=== PATIENT | female | born 1955 | race African-American/Black ===

== ENCOUNTER 2018-09-20 08:15 | Day surgery (SDC) | payer MEDICAID ==
[~2018-09-20] VITALS: Ht 157.5 cm; Wt 117.9 kg
[2018-09-20 09:38] LABS: BASOPHILS % 0.5 % (0.0-2.0); EOSINOPHILS % 1.3 % (0.0-5.0); HEMATOCRIT. 40.8 % (36.0-48.0); HEMOGLOBIN. 13.4 g/dL (12.0-16.0); LYMPHOCYTES % 38.3 % (20.0-50.0); MEAN CORPUSCULAR HEMOGLOBIN 23.7 pg (28.0-32.0); MEAN CORPUSCULAR VOLUME 72.3 fL (81.0-99.0); MEAN PLATELET VOLUME 8.1 fl (7.4-10.4); MONOCYTES % 6.5 % (2.0-8.0); NEUTROPHILS % 53.4 % (40.0-76.0); PLATELET 209 x1000/uL (130-400); RED BLOOD CELL COUNT 5.64 mill/uL (4.2-5.4); RED CELL DISTRIBUTION WIDTH 15.6 % (11.6-14.6)
[2018-09-20 09:44] LABS: CHLORIDE 106 mEq/L (98-107)
[2018-09-20] MEDS ORDERED: SIMETHICONE 40 MG/0.6 ML 30ML ONE (10:44)
[2018-09-20] MEDS ORDERED: PROPOFOL 200MG/20ML VIAL IV ONE ×2 (11:06→11:27)
[2018-09-20] MEDS ORDERED: HYDROMORPHONE HCL/PF 2MG/ML CPJ IV PRN (11:15)
[2018-09-20] MEDS ORDERED: MEPERIDINE HCL/PF 25MG/ML CPJ IV PRN (11:15)
[2018-09-20] MEDS ORDERED: ONDANSETRON HCL 4MG/2ML INJ IV PRN (11:15)
[2018-09-20] MEDS ORDERED: LABETALOL 5MG/ML SYR 20 MG/4 ML SYRINGE IV PRN (11:15)
[2018-09-20] MEDS ORDERED: LIDOCAINE HCL/PF 1% 10 MG/ML 5ML VIAL ONE (11:16)
[2018-09-20] MEDS ORDERED: DICL75TA5 PO (12:38)
[2018-09-20] MEDS ORDERED: ALBU18HF2 IH (12:38)
[2018-09-20] MEDS ORDERED: GLIM2TAB2 PO (12:38)
[2018-09-20] MEDS ORDERED: INSU100I24 SQ (12:38)
[2018-09-20] MEDS ORDERED: OXYB5TAB11 PO (12:38)
[2018-09-20] MEDS ORDERED: CLOT15CR4 TP (12:38)
[2018-09-20] MEDS ORDERED: AMMO140C2 TOP (12:38)
[2018-09-20] MEDS ORDERED: CAPS42.57 TP (12:38)
[2018-09-20] MEDS ORDERED: BECL10.62 IH (12:38)
[2018-09-20] MEDS ORDERED: DOCU250C19 PO (12:38)
[2018-09-20] MEDS ORDERED: ERGO2000 PO (12:38)
[2018-09-20] MEDS ORDERED: UMEC1DIS IH (12:38)
[2018-09-20] MEDS ORDERED: FURO20TA4 PO (12:38)
[2018-09-20] MEDS ORDERED: [UNRECOGNIZED DRUG - CODE] SUBCUT (12:38)
[2018-09-20] MEDS ORDERED: AMIT25TA9 PO (12:38)
[2018-09-20] MEDS ORDERED: MONT10TA21 PO (12:38)
[2018-09-20] MEDS ORDERED: LOSA25TA12 PO (12:38)
== END 2018-09-20 12:45 | disposition home or self-care (01) ==
LOC: OR 08:15
PROVIDERS: ATTEND Internal Medicine Gastroenterology
DX: K29.50 Unspecified chronic gastritis without bleeding (principal); K20.9 Esophagitis, unspecified; K59.00 Constipation, unspecified; K64.8 Other hemorrhoids; Z79.4 Long term (current) use of insulin; K44.9 Diaphragmatic hernia without obstruction or gangrene; B18.2 Chronic viral hepatitis C; I10 Essential (primary) hypertension; J44.9 Chronic obstructive pulmonary disease, unspecified; E11.9 Type 2 diabetes mellitus without complications; M19.90 Unspecified osteoarthritis, unspecified site; Z86.010 Personal history of colon polyps; Z98.890 Other specified postprocedural states; Z79.899 Other long term (current) drug therapy; Z90.711 Acquired absence of uterus with remaining cervical stump
CPT/HCPCS: 36415; 43239; 45378; 80048; 82962; 85025; 88305; 88312; 88313; 93005; J3490; J2704

== ENCOUNTER 2019-02-16 10:13 | Inpatient (IN) | payer MEDICAID ==
[~2019-02-16] VITALS: Ht 157.5 cm; Wt 129.3 kg
[~2019-02-16 10:13] MED LIST: ALBU18HF2 IH; AMIT25TA9 PO; AMMO140C2 TOP; BECL10.62 IH; CAPS42.57 TP; CLOT15CR4 TP; DICL75TA5 PO; DOCU250C19 PO; ERGO2000 PO; FURO20TA4 PO; GLIM2TAB2 PO; INSU100I24 SQ; LOSA25TA12 PO; MONT10TA21 PO; OXYB5TAB11 PO; UMEC1DIS IH; [UNRECOGNIZED DRUG - CODE] SUBCUT
[2019-02-16] MEDS ORDERED: KETOROLAC 30MG/ML VIAL IV STA (11:26)
[2019-02-16 11:49] LABS: BASOPHILS % 0.6 % (0.0-2.0); EOSINOPHILS % 0.4 % (0.0-5.0); HEMATOCRIT. 40.8 % (36.0-48.0); HEMOGLOBIN. 13.3 g/dL (12.0-16.0); LYMPHOCYTES % 27.6 % (20.0-50.0); MEAN CORPUSCULAR HEMOGLOBIN 24.9 pg (28.0-32.0); MEAN CORPUSCULAR VOLUME 76.7 fL (81.0-99.0); MEAN PLATELET VOLUME 7.5 fl (7.4-10.4); MONOCYTES % 5.4 % (2.0-8.0); PLATELET 346 x1000/uL (130-400); RED BLOOD CELL COUNT 5.33 mill/uL (4.2-5.4); RED CELL DISTRIBUTION WIDTH 16.9 % (11.6-14.6)
[2019-02-16 11:54] LABS: CHLORIDE 103 mEq/L (98-107)
[2019-02-16] MEDS ORDERED: DEXTROSE 50% WATER 50ML SYRINGE IV PRN (15:00)
[2019-02-16] MEDS ORDERED: CLONIDINE 0.1MG TABLET PO PRN (15:00)
[2019-02-16] MEDS ORDERED: FUROSEMIDE 40MG/4ML VIAL IVP NR (18:00)
[2019-02-16] MEDS: INSULIN LISPRO 100 UNITS/ML SUBCUT SCH ×2 (18:10→20:57)
[2019-02-16] MEDS: MONTELUKAST SODIUM 10MG TABLET PO SCH (18:58)
[2019-02-16 20:05] VITALS: BP 133/65
[2019-02-16 20:11] VITALS: BP 133/65
[2019-02-16] MEDS: ENOXAPARIN 30MG/0.3ML SYR SUBCUT SCH (20:54)
[2019-02-16] MEDS: BLOOD SUGAR DIAGNOSTIC STRIP TEST SCH (20:57)
[2019-02-16] MEDS ORDERED: GUAIFENESIN 600MG ER TABLET PO SCH (21:00)
[2019-02-16] MEDS: ACETAMINOPHEN 325MG TABLET PO PRN (23:23)
[2019-02-17 00:05] VITALS: BP 99/45
[2019-02-17] MEDS: BUDESONIDE 0.5MG/2ML NEB HHN SCH ×3 (00:36→21:11)
[2019-02-17] MEDS: IPRATROPIUM/ALBUTEROL 0.5-3(2.5)MG/3ML NEB HHN PRN (00:37)
[2019-02-17 04:00] VITALS: BP 106/74
[2019-02-17] MEDS: ACETAMINOPHEN 325MG TABLET PO PRN (06:32)
[2019-02-17 07:17] LABS: BASOPHILS % 0.6 % (0.0-2.0); EOSINOPHILS % 0.8 % (0.0-5.0); HEMATOCRIT. 38.6 % (36.0-48.0); HEMOGLOBIN. 12.5 g/dL (12.0-16.0); LYMPHOCYTES % 44.9 % (20.0-50.0); MEAN CORPUSCULAR HEMOGLOBIN 24.6 pg (28.0-32.0); MEAN CORPUSCULAR VOLUME 76.5 fL (81.0-99.0); MEAN PLATELET VOLUME 7.4 fl (7.4-10.4); MONOCYTES % 5.5 % (2.0-8.0); NEUTROPHILS % 48.2 % (40.0-76.0); PLATELET 298 x1000/uL (130-400); RED BLOOD CELL COUNT 5.05 mill/uL (4.2-5.4); RED CELL DISTRIBUTION WIDTH 16.7 % (11.6-14.6)
[2019-02-17 07:21] LABS: CHLORIDE 105 mEq/L (98-107)
[2019-02-17] MEDS: BLOOD SUGAR DIAGNOSTIC STRIP TEST SCH ×4 (07:40→21:23)
[2019-02-17 08:00] VITALS: BP 129/83
[2019-02-17] MEDS: INSULIN LISPRO 100 UNITS/ML SUBCUT SCH ×4 (08:10→21:00)
[2019-02-17] MEDS: CLOPIDOGREL 75MG TABLET PO SCH (09:00)
[2019-02-17] MEDS ORDERED: ACETAMINOPHEN 650MG SUPP PR PRN (10:15)
[2019-02-17] MEDS ORDERED: KETOROLAC 30MG/ML VIAL IV PRN (10:15)
[2019-02-17] MEDS ORDERED: DEXT 5%/0.45% NACL 500ML 1,000 ML IV ONE (11:15)
[2019-02-17] MEDS ORDERED: DEXT 5%/0.45% NACL 1000ML 1,000 ML IV SCH (11:30)
[2019-02-17] MEDS: MORPHINE SULFATE 4 MG/ML CPJ (NOT FOR IM USE) IV PRN ×3 (11:37→22:32)
[2019-02-17 12:00] VITALS: BP 132/80
[2019-02-17] MEDS: FUROSEMIDE 40MG/4ML VIAL IVP SCH (12:50)
[2019-02-17] MEDS: AZITHROMYCIN 500 MG in DEXT 5% WATER 250 ML IV SCH (12:51)
[2019-02-17] MEDS ORDERED: ASPIRIN 300MG SUPP PR SCH (13:00)
[2019-02-17] MEDS: ENOXAPARIN 30MG/0.3ML SYR SUBCUT SCH ×2 (13:02→21:23)
[2019-02-17] MEDS: LOSARTAN POTASSIUM 25 MG TABLET PO SCH (14:00)
[2019-02-17] MEDS: POTASSIUM CHLORIDE 20MEQ TABLET SR PO SCH (14:00)
[2019-02-17 14:59] LABS: ETHANOL BLOOD < 10 mg/dL
[2019-02-17 15:04] LABS: CREATINE KINASE 278 IU/L (26-192)
[2019-02-17 15:05] LABS: T4 FREE 1.09 ng/dL (0.76-1.46)
[2019-02-17 15:12] LABS: FOLIC ACID (FOLATE) SERUM >20 ng/mL ng/mL (>5.38)
[2019-02-17 15:24] LABS: VITAMIN B12 SERUM 702 pg/mL (211-911)
[2019-02-17 16:00] VITALS: BP 135/75
[2019-02-17] MEDS: DOCUSATE SODIUM SUGAR FREE 100MG/10ML UDC NG SCH (17:00)
[2019-02-17] MEDS: MONTELUKAST SODIUM 10MG TABLET PO SCH (17:00)
[2019-02-17] MEDS ORDERED: BUDESONIDE 0.5MG/2ML NEB HHN SCH (18:15)
[2019-02-17] MEDS: ONDANSETRON HCL 4MG/2ML INJ IV PRN (19:02)
[2019-02-17] MEDS: NICOTINE 14MG PATCH TD SCH (19:37)
[2019-02-17 20:00] VITALS: BP 109/48
[2019-02-17] MEDS: IPRATROPIUM/ALBUTEROL 0.5-3(2.5)MG/3ML NEB HHN SCH (21:11)
[2019-02-17] MEDS: ATORVASTATIN CALCIUM 40MG TABLET PO SCH (21:22)
[2019-02-17 23:00] LABS: CLARITY URINE CLEAR (CLEAR); COLOR URINE YELLOW (YELLOW); KETONES URINE TRACE (NEGATIVE); LEUKOCYTE ESTERASE URINE NEGATIVE (NEGATIVE); NITRITE URINE NEGATIVE (NEGATIVE); OCCULT BLOOD URINE NEGATIVE (NEGATIVE); PH URINE 5.5 (4.5-8.0); PROTEIN URINE NEGATIVE (NEGATIVE); SPECIFIC GRAVITY URINE 1.013 (1.005-1.030)
[2019-02-17 23:23] LABS: *AMPHETAMINES SCREEN URINE NEGATIVE (NEGATIVE); *BARBITURATES SCREEN URINE NEGATIVE (NEGATIVE); *BENZODIAZEPINES SCREEN URINE NEGATIVE (NEGATIVE); *COCAINE SCREEN URINE NEGATIVE (NEGATIVE); METHADONE URINE SCREEN NEGATIVE (NEGATIVE); OPIATES URINE SCREEN PRESUMTIVE POSITIVE (NEGATIVE)
[2019-02-17 23:24] LABS: CANNABINOID URINE SCREEN NEGATIVE (NEGATIVE); PHENCYCLIDINE URINE SCREEN NEGATIVE (NEGATIVE)
[2019-02-18] VITALS: BP 109/58
[2019-02-18] MEDS: IPRATROPIUM/ALBUTEROL 0.5-3(2.5)MG/3ML NEB HHN SCH ×4 (01:30→21:00)
[2019-02-18] MEDS: ACETYLCYSTEINE 100MG/ML 10% VIAL 4ML INH SCH ×2 (01:30→08:16)
[2019-02-18] MEDS: MORPHINE SULFATE 4 MG/ML CPJ (NOT FOR IM USE) IV PRN ×2 (02:46→21:36)
[2019-02-18 04:00] VITALS: BP 168/83
[2019-02-18] MEDS: BLOOD SUGAR DIAGNOSTIC STRIP TEST SCH ×4 (07:03→21:06)
[2019-02-18] MEDS: INSULIN LISPRO 100 UNITS/ML SUBCUT SCH ×4 (07:20→21:00)
[2019-02-18 07:33] LABS: BASOPHILS % 0.5 % (0.0-2.0); EOSINOPHILS % 0.8 % (0.0-5.0); HEMATOCRIT. 38.8 % (36.0-48.0); HEMOGLOBIN. 12.4 g/dL (12.0-16.0); LYMPHOCYTES % 36.9 % (20.0-50.0); MEAN CORPUSCULAR HEMOGLOBIN 24.7 pg (28.0-32.0); MEAN CORPUSCULAR VOLUME 77.3 fL (81.0-99.0); MEAN PLATELET VOLUME 7.6 fl (7.4-10.4); MONOCYTES % 7.4 % (2.0-8.0); NEUTROPHILS % 54.4 % (40.0-76.0); PLATELET 311 x1000/uL (130-400); RED BLOOD CELL COUNT 5.02 mill/uL (4.2-5.4); RED CELL DISTRIBUTION WIDTH 16.9 % (11.6-14.6)
[2019-02-18 07:38] LABS: CHLORIDE 102 mEq/L (98-107)
[2019-02-18 08:00] VITALS: BP 108/57
[2019-02-18] MEDS: BUDESONIDE 0.5MG/2ML NEB HHN SCH ×2 (08:17→21:00)
[2019-02-18] MEDS ORDERED: ASPIRIN 300MG SUPP PR SCH (09:00)
[2019-02-18] MEDS: LOSARTAN POTASSIUM 25 MG TABLET PO SCH (09:00)
[2019-02-18] MEDS: FUROSEMIDE 40MG/4ML VIAL IVP SCH (09:09)
[2019-02-18] MEDS: CLOPIDOGREL 75MG TABLET PO SCH (09:10)
[2019-02-18] MEDS: PREDNISONE 20MG TABLET PO SCH (09:10)
[2019-02-18] MEDS: DOCUSATE SODIUM SUGAR FREE 100MG/10ML UDC NG SCH ×2 (09:10→17:23)
[2019-02-18] MEDS: POTASSIUM CHLORIDE 20MEQ TABLET SR PO SCH (09:10)
[2019-02-18] MEDS: ENOXAPARIN 30MG/0.3ML SYR SUBCUT SCH (09:12)
[2019-02-18] MEDS: NICOTINE 14MG PATCH TD SCH (09:12)
[2019-02-18] MEDS: ASPIRIN 81MG TABLET PO SCH (11:02)
[2019-02-18] MEDS ORDERED: PANTOPRAZOLE SODIUM 40 MG/VIAL IV SCH (11:15)
[2019-02-18 12:00] VITALS: BP 137/62
[2019-02-18] MEDS ORDERED: MECLIZINE 25MG TABLET PO PRN (12:15)
[2019-02-18] MEDS ORDERED: DIAZEPAM 5 MG TABLET PO PRN (12:30)
[2019-02-18] MEDS: ONDANSETRON HCL 4MG/2ML INJ IV PRN (13:05)
[2019-02-18] MEDS: AZITHROMYCIN 500 MG in DEXT 5% WATER 250 ML IV SCH (14:21)
[2019-02-18] MEDS: FAMOTIDINE 20MG/2ML VIAL IV SCH ×2 (14:21→21:20)
[2019-02-18 16:00] VITALS: BP 133/58
[2019-02-18] MEDS: MONTELUKAST SODIUM 10MG TABLET PO SCH (17:23)
[2019-02-18 20:00] VITALS: BP 133/61
[2019-02-18] MEDS: ATORVASTATIN CALCIUM 40MG TABLET PO SCH (21:19)
[2019-02-18] MEDS: ENOXAPARIN 40MG/0.4ML SYR SUBCUT SCH (21:20)
[2019-02-19] VITALS: BP 154/91
[2019-02-19] MEDS: ACETYLCYSTEINE 100MG/ML 10% VIAL 4ML INH SCH ×4 (01:09→15:24)
[2019-02-19] MEDS: IPRATROPIUM/ALBUTEROL 0.5-3(2.5)MG/3ML NEB HHN SCH ×4 (01:09→20:39)
[2019-02-19 04:00] VITALS: BP 125/65
[2019-02-19] MEDS: BLOOD SUGAR DIAGNOSTIC STRIP TEST SCH ×4 (05:13→21:48)
[2019-02-19] MEDS: INSULIN LISPRO 100 UNITS/ML SUBCUT SCH ×4 (05:13→21:57)
[2019-02-19 06:32] LABS: BASOPHILS % 0.3 % (0.0-2.0); EOSINOPHILS % 0.2 % (0.0-5.0); HEMATOCRIT. 37.5 % (36.0-48.0); HEMOGLOBIN. 12.1 g/dL (12.0-16.0); LYMPHOCYTES % 31.2 % (20.0-50.0); MEAN CORPUSCULAR HEMOGLOBIN 24.8 pg (28.0-32.0); MEAN CORPUSCULAR VOLUME 76.7 fL (81.0-99.0); MEAN PLATELET VOLUME 7.3 fl (7.4-10.4); MONOCYTES % 7.8 % (2.0-8.0); NEUTROPHILS % 60.5 % (40.0-76.0); PLATELET 297 x1000/uL (130-400); RED BLOOD CELL COUNT 4.88 mill/uL (4.2-5.4); RED CELL DISTRIBUTION WIDTH 16.3 % (11.6-14.6)
[2019-02-19 07:32] LABS: CHLORIDE 103 mEq/L (98-107)
[2019-02-19 08:00] VITALS: BP 108/52
[2019-02-19] MEDS: DOCUSATE SODIUM SUGAR FREE 100MG/10ML UDC NG SCH ×2 (08:46→17:31)
[2019-02-19] MEDS: FAMOTIDINE 20MG/2ML VIAL IV SCH ×2 (08:46→21:57)
[2019-02-19] MEDS: ASPIRIN 81MG TABLET PO SCH (08:46)
[2019-02-19] MEDS: POTASSIUM CHLORIDE 20MEQ TABLET SR PO SCH (08:47)
[2019-02-19] MEDS: ENOXAPARIN 40MG/0.4ML SYR SUBCUT SCH ×2 (08:47→21:57)
[2019-02-19] MEDS: PREDNISONE 20MG TABLET PO SCH (08:47)
[2019-02-19] MEDS: LOSARTAN POTASSIUM 25 MG TABLET PO SCH (08:47)
[2019-02-19] MEDS: NICOTINE 14MG PATCH TD SCH (08:48)
[2019-02-19] MEDS: MORPHINE SULFATE 4 MG/ML CPJ (NOT FOR IM USE) IV PRN ×2 (08:48→22:09)
[2019-02-19] MEDS: BUDESONIDE 0.5MG/2ML NEB HHN SCH ×2 (10:03→20:39)
[2019-02-19] MEDS: AZITHROMYCIN 500 MG in DEXT 5% WATER 250 ML IV SCH (11:47)
[2019-02-19 12:00] VITALS: BP 108/88
[2019-02-19 15:11] LABS: BG BASE EXCESS 1.5 mmol/L (-2.0-2.0); BG CARBOXYHEMOGLOBIN 1.2 % (0.5-1.5); BG DEOXYHEMOGLOBIN 5.6 % (0.0-5.0); BG FRACTION INSPIRED OXYGEN 21; BG HCO3 ACT 26.4 mmol/L (22.0-26.0); BG METHEMOGLOBIN 0.1 % (0.0-1.5); BG OXYGEN SATURATION 94.3 % (92.0-98.5); BG OXYHEMOGLOBIN 93.1 % (94.0-97.0); BG PCO2 42.4 mmHg (35.0-45.0); BG PH 7.412 (7.350-7.450); BG PO2 73.2 mmHg (75.0-100.0); BG SAMPLE SITE LEFT RADIAL; BG TOTAL HEMOGLOBIN 14.2 g/dL (12.0-18.0); BG VENT MODE ROOM AIR
[2019-02-19 16:00] VITALS: BP 136/85
[2019-02-19] MEDS: MONTELUKAST SODIUM 10MG TABLET PO SCH (17:31)
[2019-02-19 20:00] VITALS: BP 126/79
[2019-02-19] MEDS: ATORVASTATIN CALCIUM 40MG TABLET PO SCH (21:57)
[2019-02-20] VITALS: BP 119/77
[2019-02-20] MEDS: ACETYLCYSTEINE 100MG/ML 10% VIAL 4ML INH SCH ×3 (00:27→16:36)
[2019-02-20] MEDS: IPRATROPIUM/ALBUTEROL 0.5-3(2.5)MG/3ML NEB HHN SCH ×3 (00:27→13:42)
[2019-02-20 04:00] VITALS: BP 124/75
[2019-02-20] MEDS: BLOOD SUGAR DIAGNOSTIC STRIP TEST SCH ×2 (05:35→11:39)
[2019-02-20] MEDS: INSULIN LISPRO 100 UNITS/ML SUBCUT SCH ×2 (05:35→12:34)
[2019-02-20] MEDS: BUDESONIDE 0.5MG/2ML NEB HHN SCH (09:00)
[2019-02-20] MEDS: NICOTINE 14MG PATCH TD SCH (09:45)
[2019-02-20] MEDS: ENOXAPARIN 40MG/0.4ML SYR SUBCUT SCH (09:45)
[2019-02-20] MEDS: POTASSIUM CHLORIDE 20MEQ TABLET SR PO SCH (09:46)
[2019-02-20] MEDS: DOCUSATE SODIUM SUGAR FREE 100MG/10ML UDC NG SCH (09:46)
[2019-02-20] MEDS: PREDNISONE 20MG TABLET PO SCH (09:46)
[2019-02-20] MEDS: ASPIRIN 81MG TABLET PO SCH (09:46)
[2019-02-20] MEDS: FAMOTIDINE 20MG/2ML VIAL IV SCH (09:47)
[2019-02-20] MEDS: LOSARTAN POTASSIUM 25 MG TABLET PO SCH (10:10)
[2019-02-20] MEDS: AZITHROMYCIN 500 MG in DEXT 5% WATER 250 ML IV SCH (11:39)
[2019-02-20 12:00] VITALS: BP 109/66
[2019-02-20 13:08] VITALS: BP 109/66
[2019-02-20 16:27] VITALS: BP 125/66
[2019-02-20] MEDS: IPRATROPIUM/ALBUTEROL 0.5-3(2.5)MG/3ML NEB HHN PRN (16:39)
== END 2019-02-20 17:14 | disposition home or self-care (01) | DRG 133 ==
LOC: ER 10:13 → 7WST 15:29 → EDBEDREQ 15:31 → ENRESERV 15:38 → 5WST 02-17 18:19
PROVIDERS: ADMIT Internal Medicine; ATTEND Internal Medicine
PROC: 5A09357 Assistance with Respiratory Ventilation, Less than 24 Consecutive Hours, Continuous Positive Airway Pressure (ICD-10-PCS; principal; 2019-02-17)
PROC: 5A09357 Assistance with Respiratory Ventilation, Less than 24 Consecutive Hours, Continuous Positive Airway Pressure (ICD-10-PCS; 2019-02-18)
PROC: 5A09357 Assistance with Respiratory Ventilation, Less than 24 Consecutive Hours, Continuous Positive Airway Pressure (ICD-10-PCS; 2019-02-19)
PROC: 5A09357 Assistance with Respiratory Ventilation, Less than 24 Consecutive Hours, Continuous Positive Airway Pressure (ICD-10-PCS; 2019-02-20)
DX: J96.00 Acute respiratory failure, unspecified whether with hypoxia or hypercapnia (principal); E11.42 Type 2 diabetes mellitus with diabetic polyneuropathy; E66.01 Morbid (severe) obesity due to excess calories; M48.02 Spinal stenosis, cervical region; E87.70 Fluid overload, unspecified; K74.60 Unspecified cirrhosis of liver; J44.1 Chronic obstructive pulmonary disease with (acute) exacerbation; M48.04 Spinal stenosis, thoracic region; Z68.43 Body mass index [BMI] 50.0-59.9, adult; R13.10 Dysphagia, unspecified; I10 Essential (primary) hypertension; M19.90 Unspecified osteoarthritis, unspecified site; M48.061 Spinal stenosis, lumbar region without neurogenic claudication; B19.20 Unspecified viral hepatitis C without hepatic coma; M47.22 Other spondylosis with radiculopathy, cervical region; M50.121 Cervical disc disorder at C4-C5 level with radiculopathy; E78.00 Pure hypercholesterolemia, unspecified; E78.5 Hyperlipidemia, unspecified; E87.6 Hypokalemia; R47.02 Dysphasia; F17.210 Nicotine dependence, cigarettes, uncomplicated; G47.33 Obstructive sleep apnea (adult) (pediatric); G89.29 Other chronic pain; K59.00 Constipation, unspecified; F41.9 Anxiety disorder, unspecified; Z71.3 Dietary counseling and surveillance; Z86.73 Personal history of transient ischemic attack (TIA), and cerebral infarction without residual deficits; Z79.84 Long term (current) use of oral hypoglycemic drugs
CPT/HCPCS: 36415; 36600; 70544; 70553; 71045; 72141; 72148; 80048; 80061; 80305; 80320; 82375; 82550; 82607; 82746; 82805; 82962; 83036; 83735; 83880; 84439; 84443; 84481; 84484; 85379; 92610; 93005; 93306; 93970; 94667; 97116; 97163; 97164; 97166; 97530; 99285; C1893; J0456; J1650; J1815; J1885; J1940; J2270; J2405; J3490; J7060; J7512; J7608; J7620; J7626; J8597; G0480